=== PATIENT | male | born 1945 | race Caucasian/White ===

== ENCOUNTER 2020-11-02 20:57 | Inpatient (IN) | payer MEDICARE ==
[~2020-11-02 20:57] MED LIST: ARICEPT5 MG PO; COUMADIN10 MG PO; COUMADIN5 MG PO; DOXYCYCLINE HY100 M2 PO; LIPITOR 10MG TA10 MG PO; LISINOPRIL 10MG10 MG PO; LOPRESSOR25 MG PO; SENOKOT-S TABL1 EACH PO; SEROQUEL25 MG PO; TOPROL XL100 MG PO; WELLBUTRIN XL150 MG PO
[2020-11-02 22:02] LABS: BASOPHIL 0.3 % (0-2); EOSINOPHIL 0.4 % (0-7); HCT 47.4 % (42.0-52.0); HGB 14.7 g/dl (13.2-18.0); LYMPHOCYTE 10.5 % (15-48); MCH 29.8 pg (25.0-31.0); MCV 96.1 fL (78.0-100.0); MONOCYTE 2.3 % (0-12); MPV 12.1 fL (6.0-9.5); NEUTROPHIL 86.2 % (41-80); NRBC 0; PLT 145 K/uL (150-400); RBC 4.93 M/uL (4.70-6.00); RDW 13.1 % (11.5-14.0); WBC 6.9 K/uL (4.0-10.5)
[2020-11-02 22:07] LABS: INR 1.26 (0.9-1.2); PTT 33.8 SECONDS (22.2-34.7)
[2020-11-02 22:10] LABS: ALBUMIN 3.5 g/dL (3.4-5.0); BUN/CREAT RATIO (CALC) 19.2 RATIO; CREATININE 0.99 mg/dL (0.67-1.17); GLOBULIN (CALCULATION) 3.9 g/dL; POTASSIUM 3.8 mmol/L (3.5-5.1); TOTAL PROTEIN 7.4 g/dL (6.4-8.2)
[2020-11-02 22:13] LABS: BILIRUBIN - TOTAL 2.5 mg/dL (0.2-1.0)
[2020-11-03 04:39] LABS: CORONAVIRUS 2019 SARS-COV-2 NEGATIVE (NEGATIVE); INFLUENZA A NAA NEGATIVE (NEGATIVE)
[2020-11-03] MEDS ORDERED: AMLODIPINE BES2.5 MG PO (05:18)
[2020-11-03] MEDS ORDERED: SINEMET 25-1001 EAC1 PO (05:20)
[2020-11-03] MEDS ORDERED: ELIQUIS2.5 MG PO (05:22)
[2020-11-03] MEDS ORDERED: VICODIN 10/3251 EACH PO (05:22)
[2020-11-03] MEDS ORDERED: LEXAPRO 10MG TA10 MG PO (05:23)
[2020-11-03] MEDS ORDERED: ARICEPT 5MG TABL5 MG PO (05:23)
[2020-11-03] MEDS ORDERED: TRAZODONE 50MG50 MG PO (05:23)
[2020-11-03] MEDS ORDERED: NAMENDA 10MG TA10 MG PO (05:23)
[2020-11-03] MEDS ORDERED: PROTONIX 40MG T40 MG PO (05:23)
[2020-11-03] MEDS ORDERED: FLORINEF0.1 MG PO (05:24)
[2020-11-03 06:40] LABS: BASOPHIL 0.2 % (0-2); EOSINOPHIL 0 % (0-7); HCT 42.3 % (42.0-52.0); HGB 13.6 g/dl (13.2-18.0); LYMPHOCYTE 4.3 % (15-48); MCH 30.3 pg (25.0-31.0); MCHC 32.2 g/dL (32.0-36.0); MCV 94.2 fL (78.0-100.0); MONOCYTE 8.6 % (0-12); MPV 11.8 fL (6.0-9.5); NEUTROPHIL 86.5 % (41-80); NRBC 0; PLT 126 K/uL (150-400); RBC 4.49 M/uL (4.70-6.00); RDW 13.2 % (11.5-14.0)
[2020-11-03 06:54] LABS: INR 1.37 (0.9-1.2)
[2020-11-03 07:12] LABS: BILIRUBIN - TOTAL 3.5 mg/dL (0.2-1.0); BUN/CREAT RATIO (CALC) 22.3 RATIO; CREATININE 1.12 mg/dL (0.67-1.17); GLOBULIN (CALCULATION) 3.6 g/dL; MAGNESIUM 1.7 mg/dL (1.8-2.4); POTASSIUM 4.1 mmol/L (3.5-5.1); TOTAL PROTEIN 6.6 g/dL (6.4-8.2)
--- NOTE | 2020-11-03 09:00 | NUR ---
HR ARIEL LOW 39 WHILE PT SLEEP & ON CARDIZEM GTT AT 5 MG/HR. NEW ORDER TO START TOPROL XL 25 MG Q DAY PER CARDIOLOGY & TO TURN CARDIZEM GTT OFF 1 HOUR AFTER DOSE. THIS RN TURNED DRIP DOWN TO 2.5 MG/HR FOR LOW HR & WILL D/C DRIP 1 HOUR AFTER TOPROL GIVEN. WILL CONT. TO MONITOR CLOSELY. BP 103/69.
--- NOTE | 2020-11-03 10:45 | NUR ---
CARDIZEM GTT TURNED OFF AT THIS TIME PER MD ORDER.
[2020-11-03 10:51] LABS: BILIRUBIN - DIRECT 2.4 mg/dL (0.00-0.20)
[2020-11-03] MEDS ORDERED: NORCO 5-325 TA1 EACH PO (12:37)
[2020-11-03 17:19] LABS: IRON % SATURATION 4.2 %SAT (20-50)
--- NOTE | 2020-11-03 18:04 | NUR ---
STRATIGHT CATH U/A DONE AT THIS TIME PER MD ORDER. 275 ML COLA COLORED URINE RETURNED. VIVIANA KAY RN PERFORMED PROCEDURE USING STERILE TECHNIQUE. PT TOLERATED WELL.
[2020-11-03 18:29] LABS: ALBUMIN 3.2 g/dL (3.4-5.0); ALKALINE PHOSHATASE 326 U/L (46-116); ALT 176 U/L (16-63); AST 387 U/L (15-37); BILIRUBIN - TOTAL 3.4 mg/dL (0.2-1.0); GGT (GAMMA GT) <7 U/L (15-85); LDH 319 U/L (85-227); TOTAL PROTEIN 6.2 g/dL (6.4-8.2)
[2020-11-03 18:31] LABS: BILIRUBIN 3+ mg/dL (NEGATIVE); BLOOD NEGATIVE Ery/uL (NEGATIVE); CLARITY HAZY (CLEAR); COLOR ORANGE (YELLOW); GLUCOSE (U) NORMAL (NORMAL); LEUKOCYTES NEGATIVE Leu/uL (NEGATIVE); NITRITE POSITIVE (NEGATIVE); PROTEIN TRACE (LOW) mg/dL (NEGATIVE); SPECIFIC GRAVITY 1.025 (1.001-1.030); UROBILINOGEN >=8.0 mg/dL (0.2-1.0); pH 5.5 (5.0-9.0)
[2020-11-03 18:53] LABS: BACTERIA TRACE; CALCIUM OXALATE CRYSTALS TRACE; URINARY WBC RARE
[2020-11-04 06:05] LABS: BASOPHIL 0.3 % (0-2); EOSINOPHIL 1.1 % (0-7); HCT 38.9 % (42.0-52.0); HGB 12.2 g/dl (13.2-18.0); LYMPHOCYTE 8.9 % (15-48); MCH 29.7 pg (25.0-31.0); MCHC 31.4 g/dL (32.0-36.0); MCV 94.6 fL (78.0-100.0); MPV 12.4 fL (6.0-9.5); NEUTROPHIL 81.2 % (41-80); PLT 100 K/uL (150-400); RBC 4.11 M/uL (4.70-6.00); RDW 13.7 % (11.5-14.0); WBC 6.6 K/uL (4.0-10.5)
[2020-11-04 06:20] LABS: INR 1.94 (0.9-1.2); PROTHROMBIN TIME 21.1 SECONDS (11.4-13.6); PTT 46.5 SECONDS (22.2-34.7)
[2020-11-04 06:29] LABS: ALBUMIN 2.6 g/dL (3.4-5.0); BILIRUBIN - TOTAL 2.5 mg/dL (0.2-1.0); BUN/CREAT RATIO (CALC) 29.4 RATIO; C-REACTIVE PROTEIN 14.1 mg/dL (<=0.90); CREATININE 1.19 mg/dL (0.67-1.17); GLOBULIN (CALCULATION) 3.2 g/dL; MAGNESIUM 1.9 mg/dL (1.8-2.4); PHOSPHORUS 3.8 mg/dL (2.6-4.7); POTASSIUM 4.1 mmol/L (3.5-5.1); TOTAL PROTEIN 5.8 g/dL (6.4-8.2)
[2020-11-04 06:39] LABS: PRO-BNP 3578 pg/mL (<125)
[2020-11-04 08:33] LABS: BAND 1 % (0-10); BASOPHIL(M) 1 % (0-2); EOSINOPHIL(M) 1 % (0-7); LYMPHOCYTE(M) 12 % (15-48); MONOCYTE(M) 8 % (0-12); NEUTROPHILS(M) 77 % (41-80); TOTAL CELL COUNT 100
[2020-11-04 08:35] LABS: PLATELET ESTIMATE DECREASED; PLATELET MORPHOLOGY GIANT
--- NOTE | 2020-11-04 16:21 | NUR ---
MET WITH PT. TO DISCUSS HH PREFERENCE. PT. WANTED ME TO SPEAK WITH HIS . TC TO SPOUSE, RAUL. MRS. CHE ADVISED THAT SHE WANTS [facility] AND IS WILLING TO HAVE HH. SHE IS AWARE OF AFFLIATION.
[2020-11-05 04:38] LABS: BASOPHIL 0.6 % (0-2); EOSINOPHIL 1.7 % (0-7); HCT 38.7 % (42.0-52.0); HGB 12.1 g/dl (13.2-18.0); LYMPHOCYTE 11.6 % (15-48); MCH 30.3 pg (25.0-31.0); MCHC 31.3 g/dL (32.0-36.0); MONOCYTE 7.9 % (0-12); MPV 12.4 fL (6.0-9.5); NEUTROPHIL 77.6 % (41-80); NRBC 0; PLT 104 K/uL (150-400); RBC 3.99 M/uL (4.70-6.00); RDW 13.3 % (11.5-14.0); WBC 5.4 K/uL (4.0-10.5)
[2020-11-05 04:55] LABS: INR 1.54 (0.9-1.2); PROTHROMBIN TIME 17.6 SECONDS (11.4-13.6); PTT 47.1 SECONDS (22.2-34.7)
[2020-11-05 05:08] LABS: ALBUMIN 2.6 g/dL (3.4-5.0); BUN/CREAT RATIO (CALC) 26.8 RATIO; C-REACTIVE PROTEIN 13.1 mg/dL (<=0.90); CREATININE 0.97 mg/dL (0.67-1.17); GLOBULIN (CALCULATION) 3.4 g/dL; MAGNESIUM 1.9 mg/dL (1.8-2.4)
--- NOTE | 2020-11-05 13:54 | NUR ---
MET WITH AND Abhi CHINEDU IN PT. ROOM. ADVISED MRS. CHE THAT THE HH REFERRAL HAD BEEN MADE TO [facility]. SHE ADVISED THAT PT. HAS A ROLLING WALKER, WHEELCHAIR AND 12/20.
--- NOTE | 2020-11-05 14:07 | NUR ---
HH REFERRAL SENT THROUGH [facility].
[2020-11-06 04:30] LABS: BASOPHIL 0.8 % (0-2); EOSINOPHIL 2.1 % (0-7); HCT 35.7 % (42.0-52.0); HGB 11.4 g/dl (13.2-18.0); LYMPHOCYTE 17.7 % (15-48); MCH 30.2 pg (25.0-31.0); MCHC 31.9 g/dL (32.0-36.0); MCV 94.4 fL (78.0-100.0); MONOCYTE 8.4 % (0-12); MPV 12.1 fL (6.0-9.5); NEUTROPHIL 70.4 % (41-80); NRBC 0; PLT 114 K/uL (150-400); RBC 3.78 M/uL (4.70-6.00); RDW 13.1 % (11.5-14.0); WBC 4.9 K/uL (4.0-10.5)
[2020-11-06 04:39] LABS: INR 1.74 (0.9-1.2); PROTHROMBIN TIME 19.3 SECONDS (11.4-13.6); PTT 55.6 SECONDS (22.2-34.7)
[2020-11-06 05:02] LABS: ALBUMIN 2.3 g/dL (3.4-5.0); BILIRUBIN - DIRECT 0.9 mg/dL (0.00-0.20); BILIRUBIN - TOTAL 1.7 mg/dL (0.2-1.0); BUN/CREAT RATIO (CALC) 23.3 RATIO; C-REACTIVE PROTEIN 9.1 mg/dL (<=0.90); CREATININE 0.73 mg/dL (0.67-1.17); GLOBULIN (CALCULATION) 3.1 g/dL; MAGNESIUM 1.8 mg/dL (1.8-2.4); POTASSIUM 3.6 mmol/L (3.5-5.1); TOTAL PROTEIN 5.4 g/dL (6.4-8.2)
[2020-11-07 04:47] LABS: BASOPHIL 0.9 % (0-2); EOSINOPHIL 2.6 % (0-7); HCT 35.8 % (42.0-52.0); HGB 11.5 g/dl (13.2-18.0); LYMPHOCYTE 22.3 % (15-48); MCH 29.9 pg (25.0-31.0); MCHC 32.1 g/dL (32.0-36.0); MCV 93.2 fL (78.0-100.0); MONOCYTE 8.7 % (0-12); MPV 11.7 fL (6.0-9.5); NEUTROPHIL 63.8 % (41-80); NRBC 0; PLT 131 K/uL (150-400); RBC 3.84 M/uL (4.70-6.00); RDW 12.7 % (11.5-14.0); WBC 4.6 K/uL (4.0-10.5)
[2020-11-07 05:09] LABS: ALBUMIN 2.3 g/dL (3.4-5.0); BILIRUBIN - TOTAL 1.4 mg/dL (0.2-1.0); BUN/CREAT RATIO (CALC) 12.7 RATIO; CREATININE 0.71 mg/dL (0.67-1.17); GLOBULIN (CALCULATION) 2.9 g/dL; MAGNESIUM 1.8 mg/dL (1.8-2.4); POTASSIUM 3.2 mmol/L (3.5-5.1); TOTAL PROTEIN 5.2 g/dL (6.4-8.2)
[2020-11-07] MEDS ORDERED: NORVASC5 MG PO (13:17)
[2020-11-07] MEDS ORDERED: TOPROL XL 25MG25 MG PO (13:17)
--- NOTE | 2020-11-07 14:48 | NUR ---
1440 PT DISCAHRGE INSTRUCTIONS DISCUSSED WITH , SHE VERBALIZED UNDERSTANDING. PT TRANSFERED VIA WHEELCHAIR TO FRIEND'S CAR. PT TOLERATED WELL.
== END 2020-11-07 14:40 | disposition home health service (06) | DRG 309 ==
LOC: FER 20:57 → FTCU 11-03 03:24
PROVIDERS: Emergency Medicine; Nurse Practitioner; Nurse Practitioner Family; ADMIT Internal Medicine
DX: I48.20 Chronic atrial fibrillation, unspecified (principal); I69.351 Hemiplegia and hemiparesis following cerebral infarction affecting right dominant side; Z68.1 Body mass index [BMI] 19.9 or less, adult; K80.50 Calculus of bile duct without cholangitis or cholecystitis without obstruction; G20 Parkinson's disease; F03.90 Unspecified dementia, unspecified severity, without behavioral disturbance, psychotic disturbance, mood disturbance, and anxiety; Z20.822 Contact with and (suspected) exposure to COVID-19; J44.9 Chronic obstructive pulmonary disease, unspecified; E78.5 Hyperlipidemia, unspecified; N18.30 Chronic kidney disease, stage 3 unspecified; I12.9 Hypertensive chronic kidney disease with stage 1 through stage 4 chronic kidney disease, or unspecified chronic kidney disease; K21.9 Gastro-esophageal reflux disease without esophagitis; R79.89 Other specified abnormal findings of blood chemistry; R63.0 Anorexia; D50.9 Iron deficiency anemia, unspecified; Z79.01 Long term (current) use of anticoagulants; Z87.891 Personal history of nicotine dependence; Z79.899 Other long term (current) drug therapy
CPT/HCPCS: 36415; 71045; 74183; 76705; 80053; 80076; 81001; 82248; 82607; 82728; 82977; 83540; 83550; 83605; 83615; 83690; 83735; 83880; 84100; 84145; 84439; 84443; 84484; 85025; 85610; 85730; 86140; 93005; 97162; 97166; 97530-GP; 97535; A9579; G0378; J2405; J2916; J7030; U0002

== ENCOUNTER 2020-11-15 12:07 | Emergency (ER) | payer MEDICARE ==
[~2020-11-15 12:07] MED LIST changes: +AMLODIPINE BES2.5 MG PO; +ARICEPT 5MG TABL5 MG PO; +ELIQUIS2.5 MG PO; +FLORINEF0.1 MG PO; +LEXAPRO 10MG TA10 MG PO; +NAMENDA 10MG TA10 MG PO; +NORCO 5-325 TA1 EACH PO; +NORVASC5 MG PO; +PROTONIX 40MG T40 MG PO; +SINEMET 25-1001 EAC1 PO; +TOPROL XL 25MG25 MG PO; +TRAZODONE 50MG50 MG PO; +VICODIN 10/3251 EACH PO
[2020-11-15 13:23] LABS: BASOPHIL 1.2 % (0-2); EOSINOPHIL 1.2 % (0-7); HCT 42.4 % (42.0-52.0); HGB 13.2 g/dl (13.2-18.0); LYMPHOCYTE 15.2 % (15-48); MCH 30.2 pg (25.0-31.0); MCHC 31.1 g/dL (32.0-36.0); MONOCYTE 4.9 % (0-12); MPV 10.8 fL (6.0-9.5); NEUTROPHIL 76.6 % (41-80); NRBC 0; PLT 251 K/uL (150-400); RBC 4.37 M/uL (4.70-6.00); RDW 13.2 % (11.5-14.0); WBC 6.6 K/uL (4.0-10.5)
[2020-11-15 13:41] LABS: ALBUMIN 3.1 g/dL (3.4-5.0); BILIRUBIN - TOTAL 0.7 mg/dL (0.2-1.0); BUN/CREAT RATIO (CALC) 17.5 RATIO; CREATININE 1.2 mg/dL (0.67-1.17); GLOBULIN (CALCULATION) 3.4 g/dL; POTASSIUM 4.2 mmol/L (3.5-5.1); TOTAL PROTEIN 6.5 g/dL (6.4-8.2)
[2020-11-15 13:46] LABS: INR 1.3 (0.9-1.2); PROTHROMBIN TIME 15.4 SECONDS (11.4-13.6)
[2020-11-15 13:57] LABS: LACTIC ACID 2.3 mmol/L (0.4-1.9)
[2020-11-15 16:04] LABS: BILIRUBIN 1+ mg/dL (NEGATIVE); BLOOD NEGATIVE Ery/uL (NEGATIVE); CLARITY CLEAR (CLEAR); COLOR YELLOW (YELLOW); GLUCOSE (U) NORMAL (NORMAL); LEUKOCYTES NEGATIVE Leu/uL (NEGATIVE); NITRITE NEGATIVE (NEGATIVE); PROTEIN TRACE (LOW) mg/dL (NEGATIVE); SPECIFIC GRAVITY 1.015 (1.001-1.030); pH 6.5 (5.0-9.0)
[2020-11-15 16:17] LABS: BACTERIA TRACE; CALCIUM OXALATE CRYSTALS TRACE; SQUAMOUS EPITHELIAL CELLS RARE; URINARY RBC RARE
== END 2020-11-15 21:20 | disposition other institution (70) ==
LOC: FER 12:07
PROVIDERS: Emergency Medicine
DX: A41.9 Sepsis, unspecified organism (principal); K80.30 Calculus of bile duct with cholangitis, unspecified, without obstruction; I48.91 Unspecified atrial fibrillation; I10 Essential (primary) hypertension; G20 Parkinson's disease; F02.80 Dementia in other diseases classified elsewhere, unspecified severity, without behavioral disturbance, psychotic disturbance, mood disturbance, and anxiety; Z85.46 Personal history of malignant neoplasm of prostate; Z90.49 Acquired absence of other specified parts of digestive tract; Z79.01 Long term (current) use of anticoagulants; Z79.899 Other long term (current) drug therapy; Z20.822 Contact with and (suspected) exposure to COVID-19
CPT/HCPCS: 36415; 71045; 80053; 81001; 83605; 83690; 83880; 85025; 85610; 85730; 87040; 87088; 93005; J2543; J3370; J7030; J7040; Q9967; U0002

== ENCOUNTER 2020-11-21 16:40 | Emergency (ER) | payer MEDICARE ==
[2020-11-21 17:25] LABS: BASOPHIL 0.4 % (0-2); EOSINOPHIL 0.1 % (0-7); HCT 46.5 % (42.0-52.0); HGB 14.6 g/dl (13.2-18.0); LYMPHOCYTE 10.8 % (15-48); MCH 30.2 pg (25.0-31.0); MCHC 31.4 g/dL (32.0-36.0); MCV 96.1 fL (78.0-100.0); MONOCYTE 4.6 % (0-12); MPV 11.7 fL (6.0-9.5); NEUTROPHIL 83.6 % (41-80); NRBC 0; PLT 270 K/uL (150-400); RBC 4.84 M/uL (4.70-6.00); RDW 13.2 % (11.5-14.0); WBC 12.9 K/uL (4.0-10.5)
[2020-11-21 17:30] LABS: INR 1.37 (0.9-1.2); PTT 30.6 SECONDS (22.2-34.7)
[2020-11-21 17:48] LABS: ALBUMIN 3.5 g/dL (3.4-5.0); ALKALINE PHOSHATASE 121 U/L (46-116); ALT 31 U/L (16-63); AST 40 U/L (15-37); BILIRUBIN - TOTAL 1.3 mg/dL (0.2-1.0); BUN 19 mg/dL (7-18); BUN/CREAT RATIO (CALC) 18.3 RATIO; CHLORIDE 104 mmol/L (98-107); CO2 (BICARBONATE) 29 mmol/L (21-32); CREATININE 1.04 mg/dL (0.67-1.17); GLOBULIN (CALCULATION) 3.5 g/dL; GLUCOSE 167 mg/dL (74-106)
[2020-11-21 19:16] LABS: BILIRUBIN 2+ mg/dL (NEGATIVE); BLOOD NEGATIVE Ery/uL (NEGATIVE); CLARITY CLEAR (CLEAR); COLOR YELLOW (YELLOW); GLUCOSE (U) NORMAL (NORMAL); LEUKOCYTES NEGATIVE Leu/uL (NEGATIVE); NITRITE NEGATIVE (NEGATIVE); PROTEIN 1+ mg/dL (NEGATIVE); SPECIFIC GRAVITY >=1.030 (1.001-1.030); UROBILINOGEN 0.2 mg/dL (0.2-1.0)
[2020-11-21 19:28] LABS: AMORPHOUS URATES CRYSTALS MODERATE; BACTERIA 1+; MUCOUS MODERATE; SQUAMOUS EPITHELIAL CELLS RARE; URINARY WBC RARE
== END 2020-11-22 04:49 | disposition other institution (70) ==
LOC: FER 16:40
PROVIDERS: Emergency Medicine
DX: A41.9 Sepsis, unspecified organism (principal); R07.89 Other chest pain; I45.10 Unspecified right bundle-branch block; I48.91 Unspecified atrial fibrillation; I10 Essential (primary) hypertension; G20 Parkinson's disease; F02.80 Dementia in other diseases classified elsewhere, unspecified severity, without behavioral disturbance, psychotic disturbance, mood disturbance, and anxiety; Z86.73 Personal history of transient ischemic attack (TIA), and cerebral infarction without residual deficits; Z87.891 Personal history of nicotine dependence; Z20.822 Contact with and (suspected) exposure to COVID-19; Z79.01 Long term (current) use of anticoagulants; Z79.891 Long term (current) use of opiate analgesic; Z79.899 Other long term (current) drug therapy
CPT/HCPCS: 36415; 71260; 80053; 81001; 83605; 84145; 84443; 84484; 85025; 85610; 85730; 87040; 93005; G0480; J1160; J2543; J7030; Q9967; U0002

== ENCOUNTER 2020-12-14 21:00 | Inpatient (IN) | payer MEDICARE ==
[2020-12-14 21:34] LABS: BASOPHIL 0.4 % (0-2); EOSINOPHIL 0.4 % (0-7); HGB 10.2 g/dl (13.2-18.0); LYMPHOCYTE 10.1 % (15-48); MCH 29.3 pg (25.0-31.0); MCHC 31.9 g/dL (32.0-36.0); MONOCYTE 7.8 % (0-12); MPV 11.2 fL (6.0-9.5); NEUTROPHIL 80.5 % (41-80); NRBC 0; PLT 299 K/uL (150-400); RBC 3.48 M/uL (4.70-6.00); RDW 13.6 % (11.5-14.0); WBC 11.6 K/uL (4.0-10.5)
[2020-12-14 21:43] LABS: INR 1.89 (0.9-1.2); PROTHROMBIN TIME 20.6 SECONDS (11.4-13.6); PTT 51.3 SECONDS (22.2-34.7)
[2020-12-14 21:51] LABS: ALBUMIN 1.8 g/dL (3.4-5.0); ALKALINE PHOSHATASE 111 U/L (46-116); ALT 6 U/L (16-63); AST 25 U/L (15-37); BILIRUBIN - TOTAL 0.7 mg/dL (0.2-1.0); BUN 15 mg/dL (7-18); BUN/CREAT RATIO (CALC) 17.4 RATIO; C-REACTIVE PROTEIN >18.00 mg/dL (<=0.90); CHLORIDE 100 mmol/L (98-107); CO2 (BICARBONATE) 28 mmol/L (21-32); CREATININE 0.86 mg/dL (0.67-1.17); GLUCOSE 96 mg/dL (74-106); LIPASE 110 U/L (73-393); POTASSIUM 4.7 mmol/L (3.5-5.1); TOTAL PROTEIN 5.8 g/dL (6.4-8.2)
[2020-12-14 21:53] LABS: LACTIC ACID 1.4 mmol/L (0.4-1.9)
[2020-12-14 22:55] LABS: CORONAVIRUS 2019 SARS-COV-2 NEGATIVE (NEGATIVE); INFLUENZA A NAA NEGATIVE (NEGATIVE)
[2020-12-15 01:13] LABS: BILIRUBIN NEGATIVE (NEGATIVE); BLOOD NEGATIVE Ery/uL (NEGATIVE); CLARITY CLEAR (CLEAR); COLOR YELLOW (YELLOW); GLUCOSE (U) NORMAL (NORMAL); LEUKOCYTES NEGATIVE Leu/uL (NEGATIVE); NITRITE NEGATIVE (NEGATIVE); PROTEIN NEGATIVE (NEGATIVE)
[2020-12-15 01:20] LABS: AMPHETAMINES NEGATIVE (NEGATIVE); BARBITURATES NEGATIVE (NEGATIVE); ECSTASY (MDMA) NEGATIVE (NEGATIVE); MARIJUANA (THC) NEGATIVE (NEGATIVE); METHADONE NEGATIVE (NEGATIVE); OPIATES POSITIVE (NEGATIVE); OXYCODONE POSITIVE (NEGATIVE)
--- NOTE | 2020-12-15 05:56 | NUR ---
PT ARRIVED TO FLOOR AND WAS CHANGED FROM THE WET BRIEF, WHEN TRYING TO GET VITALS, PTS O2 READ BETWEEN 70-60. O2 WAS APPLIED AT 4 LITERS NC WHICH THERE WAS NO CHANGE IN OS SAT. PT WAS BUMPED UP TO 10 LITERS NC AND THE O2 SAT INCREASED FROM 60-70 TO IN THE 80'S SOMETIMES INCREASING TO THE 90'S BUT WOULD TREND DOWN FREQUENTLY. PT WAS PUT ON A 50% VENTI MASK WITH 15L. PT SATS INCREASED TO 90'S AND TRENDED IN THE 90'S TO 80'S. RESPIRATORY BENITA CAME INTO ROOM ALONG WITH CALLIE RN, ROHAN RN, AND RENAN RN, O2 PROBE WAS CHANGED MULTIPLE TIMES ON FINGERS AND THEN ONE WAS APPLIED TO THE FOREHEAD. PATIENTS SAT ON THE FORHEAD PROBE WAS 100% CALLIE WILCOX WAS SPEAKING TO MD KINGSTON ON THE PHONE THROUGHOUT THE TIME OF TRING TO GET THE PATIENT STABLE. DR GONZALEZ ORDERED FOR AN ABG WITH THE PULSE OX READING 100 PATIENT WAS DECREASED TO 40% VENTI MASK AFTER MASK WAS CHANGED BENITA CAME INTO ROOM TO REPORT THAT PATIENTS PO2 WAS HIGH PT WAS TAKEN OFF OXYGEN MASK AND CONTINUED TO STAY IN THE UPPER 90'S ON THE FOREHEAD PULSE OX, DR KINGSTON ORDERED FOR A DOSE OF NARCAN AND CONFIRMED WITH REGISTERED PHARMACY TECHNICIAN JOHNNIE WILCOX PT BECAME MORE ALERT PATIENT WAS ASSESSED AND WAS ABLE TO ANSWER ALL QUESTIONS CORRECTLY, RICARDO REGISTERED PHARMACY TECHNICIAN CAME BACK INTO ROOM TO SEE PATIENT ALSO. DR KINGSTON WAS NOTIFED OF PATIENTS CHANGE AND VERBALIZED HE WAS OKAY WITH HOLDING THE DOSE OF NARCAN. WHILE SPEAKING WITH DR KINGSTON NOTIFIED OF PATIENTS BLOOD PRESSURE RANGING 90/60 AND HAVING A HISTORY OF TAKING FLORINEF 1T DOSE OF 0.1MG FLORINEF WAS ORDERED ALONG WITH NS AT 75. PT WAS ALSO TACHYCARDIC RANGING BETWEEN 110-120'S WITH SOME INCREASES TO THE 130'S. DR KINGSTON WANT TO WAIT TO GIVE ANYTHING WITH THE LOW BLOOD PRESSURE AND SAID TO REASSES AND THEN HE WOULD ORDER SOMETHING FOR HEART RATE. APPROX 0400 PT BLOOD PRESSURE WAS REASSESED AND IT WAS 110/69 DR KINGSTON DID ASSESSMENT THROUGH TELEBOT. DR KINGSTON ORDERED FOR 5MG IVP LOPRESSOR. PT WAS GIVEN LOPRESSOR AND HAS BEEN MONITORED ON TELEMETRY. PATIENTS HEART RATE HAS SUSTAINED BETWEEN 100-110.
[2020-12-15 06:58] LABS: BASOPHIL 0.3 % (0-2); EOSINOPHIL 0.2 % (0-7); HCT 30.4 % (42.0-52.0); HGB 9.5 g/dl (13.2-18.0); LYMPHOCYTE 4.5 % (15-48); MCHC 31.3 g/dL (32.0-36.0); MCV 92.7 fL (78.0-100.0); MONOCYTE 8.2 % (0-12); MPV 10.9 fL (6.0-9.5); NEUTROPHIL 86.1 % (41-80); NRBC 0; PLT 225 K/uL (150-400); RBC 3.28 M/uL (4.70-6.00); RDW 13.8 % (11.5-14.0); WBC 15.6 K/uL (4.0-10.5)
[2020-12-15 07:20] LABS: BUN/CREAT RATIO (CALC) 16.5 RATIO; CREATININE 0.91 mg/dL (0.67-1.17); MAGNESIUM 1.7 mg/dL (1.8-2.4); POTASSIUM 4.8 mmol/L (3.5-5.1)
--- NOTE | 2020-12-16 01:33 | NUR ---
REVIEWED CHARTING BY ATIF WILCOX IN ORIENTATION VERIFIED ALL DOCUMENTION IS TRUE AND ACCURATE
--- NOTE | 2020-12-16 01:49 | NUR ---
PT HAD A LOW BP RANGING BETWEEN 90/60 SPOKE TO GLADYS ROSE AND A 500ML BOLUS AT 250 ML/HR THE BOLUS WAS HALF WAY THROUGH PT BLOOD PRESSURE WAS 82/52 AUTOMATIC, AND 80/58 MANUAL. IT WAS CHECKED TWICE AND THE CHECKED BY GLADYS ROSE. PT WAS ORDERED FOR ANOTHER BOLUS OF 500ML TO BE INFUSED OVER 1 HOUR.
[2020-12-16 06:29] LABS: BASOPHIL 0.4 % (0-2); EOSINOPHIL 0.4 % (0-7); HGB 8.6 g/dl (13.2-18.0); LYMPHOCYTE 7.1 % (15-48); MCH 28.8 pg (25.0-31.0); MCHC 30.7 g/dL (32.0-36.0); MCV 93.6 fL (78.0-100.0); MONOCYTE 7.5 % (0-12); NEUTROPHIL 83.2 % (41-80); NRBC 0; PLT 238 K/uL (150-400); RBC 2.99 M/uL (4.70-6.00); RDW 14.2 % (11.5-14.0); WBC 13.6 K/uL (4.0-10.5)
[2020-12-16 06:45] LABS: INR 1.74 (0.9-1.2); PROTHROMBIN TIME 19.3 SECONDS (11.4-13.6)
[2020-12-16 07:16] LABS: ALBUMIN 1.4 g/dL (3.4-5.0); BILIRUBIN - TOTAL 0.6 mg/dL (0.2-1.0); BUN/CREAT RATIO (CALC) 18.5 RATIO; CREATININE 0.92 mg/dL (0.67-1.17); GLOBULIN (CALCULATION) 3.7 g/dL; PHOSPHORUS 3.1 mg/dL (2.6-4.7); TOTAL PROTEIN 5.1 g/dL (6.4-8.2)
[2020-12-16 07:22] LABS: POTASSIUM 3.9 mmol/L (3.5-5.1)
[2020-12-17 06:02] LABS: BASOPHIL 0.4 % (0-2); EOSINOPHIL 1.4 % (0-7); HCT 26.8 % (42.0-52.0); HGB 8.5 g/dl (13.2-18.0); LYMPHOCYTE 7.6 % (15-48); MCH 29.3 pg (25.0-31.0); MCHC 31.7 g/dL (32.0-36.0); MCV 92.4 fL (78.0-100.0); MONOCYTE 6.3 % (0-12); MPV 10.7 fL (6.0-9.5); NEUTROPHIL 81.8 % (41-80); NRBC 0; PLT 260 K/uL (150-400); RDW 14.2 % (11.5-14.0)
[2020-12-17 06:20] LABS: BUN/CREAT RATIO (CALC) 21.8 RATIO; CREATININE 0.87 mg/dL (0.67-1.17); MAGNESIUM 1.9 mg/dL (1.8-2.4); PHOSPHORUS 2.8 mg/dL (2.6-4.7); POTASSIUM 3.1 mmol/L (3.5-5.1)
[2020-12-17 06:37] LABS: PRO-BNP 9129 pg/mL (<125)
--- NOTE | 2020-12-17 16:18 | NUR ---
12/17 Pt is current with [facility] . Please notify [facility] at [phone] if patient is dc over the weekend.
[2020-12-18 04:00] LABS: BASOPHIL 0.5 % (0-2); EOSINOPHIL 1.8 % (0-7); HCT 28.3 % (42.0-52.0); HGB 8.7 g/dl (13.2-18.0); LYMPHOCYTE 9.7 % (15-48); MCH 28.9 pg (25.0-31.0); MCHC 30.7 g/dL (32.0-36.0); MONOCYTE 7.2 % (0-12); MPV 10.7 fL (6.0-9.5); NEUTROPHIL 78.6 % (41-80); NRBC 0; PLT 267 K/uL (150-400); RBC 3.01 M/uL (4.70-6.00); RDW 14.3 % (11.5-14.0); WBC 9.4 K/uL (4.0-10.5)
[2020-12-18 04:22] LABS: ALBUMIN 1.4 g/dL (3.4-5.0); ALKALINE PHOSHATASE 69 U/L (46-116); ALT <6 U/L (16-63); AST 20 U/L (15-37); BILIRUBIN - TOTAL 0.5 mg/dL (0.2-1.0); BUN 17 mg/dL (7-18); BUN/CREAT RATIO (CALC) 20.5 RATIO; CHLORIDE 113 mmol/L (98-107); CO2 (BICARBONATE) 26 mmol/L (21-32); CREATININE 0.83 mg/dL (0.67-1.17); GLOBULIN (CALCULATION) 3.2 g/dL; GLUCOSE 89 mg/dL (74-106); MAGNESIUM 1.9 mg/dL (1.8-2.4); POTASSIUM 3.1 mmol/L (3.5-5.1); TOTAL PROTEIN 4.6 g/dL (6.4-8.2)
[2020-12-19 03:45] LABS: BASOPHIL 0.6 % (0-2); EOSINOPHIL 0.5 % (0-7); HCT 30.4 % (42.0-52.0); HGB 9.3 g/dl (13.2-18.0); LYMPHOCYTE 7.6 % (15-48); MCH 28.5 pg (25.0-31.0); MCHC 30.6 g/dL (32.0-36.0); MCV 93.3 fL (78.0-100.0); MONOCYTE 7.2 % (0-12); MPV 10.5 fL (6.0-9.5); NEUTROPHIL 80.4 % (41-80); NRBC 0; PLT 313 K/uL (150-400); RBC 3.26 M/uL (4.70-6.00); RDW 14.5 % (11.5-14.0); WBC 14.8 K/uL (4.0-10.5)
[2020-12-19 04:13] LABS: CREATININE 0.89 mg/dL (0.67-1.17); POTASSIUM 3.1 mmol/L (3.5-5.1)
[2020-12-19 10:38] LABS: BILIRUBIN NEGATIVE (NEGATIVE); BLOOD NEGATIVE Ery/uL (NEGATIVE); CLARITY CLEAR (CLEAR); COLOR YELLOW (YELLOW); GLUCOSE (U) NORMAL (NORMAL); LEUKOCYTES NEGATIVE Leu/uL (NEGATIVE); NITRITE NEGATIVE (NEGATIVE); PROTEIN TRACE (LOW) mg/dL (NEGATIVE); SPECIFIC GRAVITY >=1.030 (1.001-1.030); UROBILINOGEN 0.2 mg/dL (0.2-1.0); pH 5.5 (5.0-9.0)
[2020-12-19 10:48] LABS: BACTERIA TRACE; GRANULAR CASTS TRACE
[2020-12-19 18:22] LABS: IRON % SATURATION 9.5 %SAT (20-50)
[2020-12-19 18:49] LABS: ALBUMIN 1.6 g/dL (3.4-5.0); ALKALINE PHOSHATASE 68 U/L (46-116); ALT <6 U/L (16-63); AST 19 U/L (15-37); BILIRUBIN - TOTAL 0.6 mg/dL (0.2-1.0); BUN 16 mg/dL (7-18); BUN/CREAT RATIO (CALC) 18.4 RATIO; CHLORIDE 111 mmol/L (98-107); CO2 (BICARBONATE) 22 mmol/L (21-32); CREATININE 0.87 mg/dL (0.67-1.17); GLOBULIN (CALCULATION) 3.6 g/dL; GLUCOSE 54 mg/dL (74-106); LIPASE 46 U/L (73-393); POTASSIUM 3.3 mmol/L (3.5-5.1); TOTAL PROTEIN 5.2 g/dL (6.4-8.2)
--- NOTE | 2020-12-20 00:17 | NUR ---
0000 12/20/20 temp 100.1 rn notified lina jane boiler tube blower per orders, boiler tube blower aware, blood cultures still pending from 12/19/20 0000 and change of antibiotics in place, ok with current orders, no orderes at this time, tylenol 650mg po administered and cold compress placed on pt per rn and prn orders
[2020-12-20 05:49] LABS: BASOPHIL 0.4 % (0-2); EOSINOPHIL 0.6 % (0-7); HCT 26.4 % (42.0-52.0); HGB 8.5 g/dl (13.2-18.0); LYMPHOCYTE 6.1 % (15-48); MCH 29.5 pg (25.0-31.0); MCHC 32.2 g/dL (32.0-36.0); MCV 91.7 fL (78.0-100.0); MONOCYTE 7.1 % (0-12); MPV 10.8 fL (6.0-9.5); NEUTROPHIL 81.6 % (41-80); NRBC 0; PLT 304 K/uL (150-400); RBC 2.88 M/uL (4.70-6.00); RDW 14.6 % (11.5-14.0); WBC 12.3 K/uL (4.0-10.5)
[2020-12-20 06:10] LABS: ALBUMIN 1.3 g/dL (3.4-5.0); ALKALINE PHOSHATASE 60 U/L (46-116); ALT <6 U/L (16-63); AST 12 U/L (15-37); BILIRUBIN - TOTAL 0.4 mg/dL (0.2-1.0); BUN 16 mg/dL (7-18); BUN/CREAT RATIO (CALC) 16.7 RATIO; CHLORIDE 111 mmol/L (98-107); CO2 (BICARBONATE) 26 mmol/L (21-32); CREATININE 0.96 mg/dL (0.67-1.17); GLUCOSE 108 mg/dL (74-106); MAGNESIUM 1.6 mg/dL (1.8-2.4); POTASSIUM 3.4 mmol/L (3.5-5.1); TOTAL PROTEIN 4.3 g/dL (6.4-8.2)
--- NOTE | 2020-12-20 13:15 | NUR ---
ORDER RECEIVED FOR PICC LINE PLACEMENT. RISKS AND BENEFITS EXPLAINED, CONSENT SIGNED. PT'S LEFT UPPER ARM BASILIC VEIN VISUALIZEDUSING THE [employer] SITE 6 ULTRA MACHINE. PATIENT THEN PREPPED AND DRAPED IN STERILE FASHION. THE AREA WAS CLEANSED WITH CHLORAPREP. THE AREA WAS NUMBED WITH 1 ML OF 1% LIDOCAINE. A 21 GAUGE NEEDLE WAS USED. GOOD BLOOD RETURN. THE GUIDE WIRE THREATED EASILY. THE NEEDLE WAS REMOVED AND THE SHEATH WAS PLACED OVER THE WIRE. THE WIRE WAS THEN REMOVED AND A CAP WAS PLACED ON THE END. THE PATIENT WAS MEASURED FOR THE PICC LINE PLACEMENT. PICC WAS TRIMMED AT 48CM AND FLUSHED. THE INTRODUCER WAS REMOVED AND THE PICC CATHETER WAS GUIDED INTO POSITION. THE SHEATH WAS PEELED BACK. A STERILE BIOPATCH WAS PLACED AT THE INSERTION SITE. A STAT LOCK WAS PLACED ON. A STERILE TEGADERM WAS PLACED OVER THE PICC LINE. A STAT PORTABLE CHEST X-RAY WAS OBTAINED. PER RADIOLOGIST THE PICC LINE IS IN THE SVC. THE STYLET WAS REMOVED AND THE CLEAR CAP WAS FLUSHED AND PLACED ON THE END. PATIENT HAS A 4 TURKMEN 1 LUMEN POWER PICC. TRIMMED AT 48 CM, INSERTION 0 CM. BICEPS 24.5 CM. GOOD BLOODRETURN NOTED. PATIENT TOLERATED PROCEDURE WELL. REPORT GIVEN TO JERI PERLA. BED LOWERED, SIDE RAILS UP, BED ALERT TURNED BACK ON AND CALL LIGHT PLACED NEXT TO PATIENT WITHIN REACH.
--- NOTE | 2020-12-20 14:47 | NUR ---
12/20/20 Mr. Paula lives at home with his spouse who is his caregiver. He has a 3in1, rw, ans s. chair. He is mostly bedbound. [facility] is current and pt / spouse would like to continue these services. [facility] notified. Affliation is understood. - Mr. Paula will potentially require IV antibiotic treatment following discharge. Options of HH vs SNF services were discussed. Ms. Paula would prefer the IV treatment to be provided at home through HH. Their granddaughter is currently living in the home and could learn to administer the medication per Ms. Paula.
[2020-12-21 04:11] LABS: HCT 27.4 % (42.0-52.0); HGB 8.6 g/dl (13.2-18.0); MCH 28.6 pg (25.0-31.0); MCHC 31.4 g/dL (32.0-36.0); MPV 10.7 fL (6.0-9.5); RBC 3.01 M/uL (4.70-6.00); RDW 14.6 % (11.5-14.0)
[2020-12-21 04:27] LABS: BUN/CREAT RATIO (CALC) 25.3 RATIO; CREATININE 0.79 mg/dL (0.67-1.17); POTASSIUM 3.2 mmol/L (3.5-5.1)
--- NOTE | 2020-12-21 17:03 | NUR ---
SPUTUMN UNABLE TO BE COLLECTED, NO COUGH PRESENT.
[2020-12-22 03:43] LABS: HCT 28.7 % (42.0-52.0); HGB 8.9 g/dl (13.2-18.0); MCH 28.3 pg (25.0-31.0); MCV 91.1 fL (78.0-100.0); MPV 10.4 fL (6.0-9.5); RBC 3.15 M/uL (4.70-6.00); RDW 14.8 % (11.5-14.0); WBC 9.6 K/uL (4.0-10.5)
[2020-12-22 04:00] LABS: BUN/CREAT RATIO (CALC) 16.7 RATIO; CREATININE 0.78 mg/dL (0.67-1.17); POTASSIUM 3.5 mmol/L (3.5-5.1)
[2020-12-22] MEDS ORDERED: DIGITEK125 MCG PO ×2 (09:38→15:37)
[2020-12-22] MEDS ORDERED: TOPROL XL 25MG25 MG PO (09:38)
[2020-12-22] MEDS ORDERED: AUGMENTIN 875-1 EACH PO ×2 (09:38→15:37)
[2020-12-22] MEDS ORDERED: BUMETANIDE1 MG PO (09:38)
--- NOTE | 2020-12-22 14:01 | NUR ---
PICC IN [facility] PLACED ON 12/20/20 REMOVED BEFORE DISCHARGE. PRESSURE APPLIED FOR 5 MINTUES AND BIOCCULSIVE APPLIED. SITE INTACT AND CLEAN UPON DISCAHRGE. ASSISTED PT AND IN DRESSING PT AND INTO WHEELCHAIR. PT DISCHARGE INSTRUCTIONS AND EDUCATION WERE GIVEN AND DOCUMENTED. TELE REMOVED.
[2020-12-22] MEDS ORDERED: BUMEX1 MG PO (15:37)
[2020-12-22] MEDS ORDERED: TOPROL XL 50 MG50 MG PO (15:37)
== END 2020-12-22 13:22 | disposition home health service (06) | DRG 871 ==
LOC: FER 21:00 → FMS 23:45 → FTCU 12-16 09:31
PROVIDERS: Hospitalist; Internal Medicine; Nurse Practitioner; Student in an Organized Health Care Education/Training Program; ADMIT Allergy & Immunology
PROC: 02HV33Z Insertion of Infusion Device into Superior Vena Cava, Percutaneous Approach (ICD-10-PCS; principal; 2020-12-20)
DX: A41.9 Sepsis, unspecified organism (principal); J18.9 Pneumonia, unspecified organism; G93.41 Metabolic encephalopathy; J90 Pleural effusion, not elsewhere classified; I48.20 Chronic atrial fibrillation, unspecified; E87.6 Hypokalemia; G20 Parkinson's disease; F02.80 Dementia in other diseases classified elsewhere, unspecified severity, without behavioral disturbance, psychotic disturbance, mood disturbance, and anxiety; F32.9 Major depressive disorder, single episode, unspecified; Z20.822 Contact with and (suspected) exposure to COVID-19; I11.0 Hypertensive heart disease with heart failure; K21.9 Gastro-esophageal reflux disease without esophagitis; I50.9 Heart failure, unspecified; Z98.890 Other specified postprocedural states; Z86.73 Personal history of transient ischemic attack (TIA), and cerebral infarction without residual deficits; Z85.46 Personal history of malignant neoplasm of prostate
CPT/HCPCS: 36415; 36600; 70450; 71045; 71260; 80048; 80053; 80076; 80162; 80202; 80305; 81001; 81003; 82607; 82803; 83540; 83550; 83605; 83690; 83735; 83880; 84100; 84145; 84484; 85025; 85610; 85730; 86140; 87040; 87045; 87046; 87077; 87088; 87186; 87205; 87324; 87449; 87493; 93005; 94010; 97162; 97166; 97530; 97530-GP; 97535; C1751; J0500; J1160; J1642; J1885; J1956; J2185; J2310; J2543; J3370; J3475; J7030; J7040; J7050; Q9967; U0002

== ENCOUNTER 2020-12-29 16:53 | Emergency (ER) | payer MEDICARE ==
[~2020-12-29 16:53] MED LIST changes: +AUGMENTIN 875-1 EACH PO; +BUMETANIDE1 MG PO; +BUMEX1 MG PO; +DIGITEK125 MCG PO; +TOPROL XL 50 MG50 MG PO
[2020-12-29 17:30] LABS: BASOPHIL 0.7 % (0-2); EOSINOPHIL 1.7 % (0-7); HCT 34.9 % (42.0-52.0); HGB 10.6 g/dl (13.2-18.0); LYMPHOCYTE 11.6 % (15-48); MCH 27.7 pg (25.0-31.0); MCHC 30.4 g/dL (32.0-36.0); MCV 91.4 fL (78.0-100.0); MONOCYTE 6.3 % (0-12); MPV 10.8 fL (6.0-9.5); NEUTROPHIL 78.2 % (41-80); NRBC 0; PLT 474 K/uL (150-400); RBC 3.82 M/uL (4.70-6.00); RDW 14.8 % (11.5-14.0); WBC 11.6 K/uL (4.0-10.5)
[2020-12-29 17:47] LABS: ALBUMIN 1.8 g/dL (3.4-5.0); BILIRUBIN - TOTAL 0.5 mg/dL (0.2-1.0); BUN/CREAT RATIO (CALC) 18.5 RATIO; CREATININE 0.81 mg/dL (0.67-1.17); GLOBULIN (CALCULATION) 4.2 g/dL
[2020-12-29 17:56] LABS: PRO-BNP 11150 pg/mL (<125)
== END 2020-12-29 21:32 | disposition home or self-care (01) ==
LOC: FER 16:53
PROVIDERS: Emergency Medicine
DX: J90 Pleural effusion, not elsewhere classified (principal); I45.10 Unspecified right bundle-branch block; I48.91 Unspecified atrial fibrillation; I10 Essential (primary) hypertension; G20 Parkinson's disease; Z86.73 Personal history of transient ischemic attack (TIA), and cerebral infarction without residual deficits; Z88.6 Allergy status to analgesic agent; Z20.822 Contact with and (suspected) exposure to COVID-19
CPT/HCPCS: 36415; 36600; 71045; 71275; 80053; 82803; 83605; 83880; 84145; 84484; 85025; 85379; 87040; 93005; J7040; Q9967; U0002